=== PATIENT | male | born 1995 | race African-American/Black ===

== ENCOUNTER 2020-08-07 00:32 | Emergency (ER) | payer OTHER, SELFPAY ==
[2020-08-07 00:51] VITALS: BP 137/92; PULSE 68; RESP 16; TEMP 36.1; O2SAT 100
--- NOTE | 2020-08-07 00:54 | ED.GENADULT ---
HPI - General Adult General Chief complaint: Psychiatric Symptoms Stated complaint: si Time Seen by Provider: 08/07/20 00:51 History of Present Illness HPI narrative: Patient a 25-year-old gentleman who presents the emergency department with chief complaint of depression and suicidal ideation. The patient reports he has been feeling down lately and reports that he is having thoughts of hurting himself. The patient states he does not have a defined plan and states that it would vary depending on while he was having relatively access to. Patient reports he has been self-medicating with marijuana reports that he had no prior hospitalizations reports he has had no prior suicide attempt. Related Data Allergies Allergy/AdvReac Type Severity Reaction Status Date / Time No Known Allergies Allergy Verified 08/07/20 02:04 Review of Systems Review of Systems: Narrative: A 10 system review of systems was completed on the patient and is negative except for what is stated in the HPI. Nursing and ancillary documentation was reviewed. [facility] Social History Social History Gender identity (if verbalized by the patient): Male Exam Narrative: Exam Narrative: GENERAL: Well-appearing, well-nourished, and in no acute distress. HEAD: Normocephalic, atraumatic. EYES: PERRLA and EOMI. ENT: Nares clear, no rhinorrhea or epistaxis. Mucous membranes moist. NECK: Supple. CHEST: Clear to auscultation. No respiratory distress. HEART: Regular rate and rhythm. No murmur heard. Normal peripheral pulses. ABDOMEN: Soft, nontender, nondistended, normal active bowel sounds. EXTREMITIES: Normal range of motion. No edema. SKIN: Warm, dry, no rash. NEURO: No focal deficits. Alert and oriented x3. PSYCH: Normal mood and affect. Course Course Emergency Course: Patient is medically cleared for psychiatric evaluation Patient seen by crisis and cleared for outpatient follow-up Vital Signs Vital signs: Vital Signs Temperature 36.1 C L 08/07/20 00:51 Pulse Rate 68 08/07/20 00:51 Respiratory Rate 16 08/07/20 00:51 Blood Pressure 137/92 H 08/07/20 00:51 Pulse Oximetry 100 08/07/20 00:51 Temperature 36.1 C L 08/07/20 00:51 Pulse Rate 68 08/07/20 00:51 Respiratory Rate 16 08/07/20 00:51 Blood Pressure 137/92 H 08/07/20 00:51 Pulse Oximetry 100 08/07/20 00:51 Medical Decision Making Vital Signs Vital Signs: Vital Signs Temperature 36.1 C L 08/07/20 00:51 Pulse Rate 68 08/07/20 00:51 Respiratory Rate 16 08/07/20 00:51 Blood Pressure 137/92 H 08/07/20 00:51 Pulse Oximetry 100 08/07/20 00:51 Temperature 36.1 C L 08/07/20 00:51 Pulse Rate 68 08/07/20 00:51 Respiratory Rate 16 08/07/20 00:51 Blood Pressure 137/92 H 08/07/20 00:51 Pulse Oximetry 100 08/07/20 00:51 Lab Data Result diagrams: 08/07/20 01:04 08/07/20 01:04 Labs: Lab Results 08/07/20 08/07/20 08/07/20 Range/Units 01:04 01:04 01:04 WBC 5.2 (4.5-10.0) K/mm3 RBC 5.01 (4.6-6.20) M/mm3 Hgb 14.2 (14.0-18.0) g/dL Hct 41.6 L (42.0-52.0) % MCV 83.0 (80-100) fl MCH 28.3 (26-34) pg MCHC 34.1 (32-36) g/dl RDW 12.2 (11.5-14.5) % Plt Count 208 (150-375) k/mm3 MPV 10.5 H (7.4-10.4) fl Immature Gran % (Auto) 0.2 (0-0.5) % Neut % (Auto) 45.2 L (45.5-73.1) % Lymph % (Auto) 34.4 (18.3-44.2) % [place] % (Auto) 10.1 H (2.6-8.5) % Eos % (Auto) 8.9 H (0-4.4) % Baso % (Auto) 1.2 (0.2-1.2) % Lymph # (Auto) 1.77 (0.9-3.2) K/mm3 [place] # (Auto) 0.5 (0.1-0.6) K/mm3 Eos # (Auto) 0.5 H (0-0.3) K/mm3 Baso # (Auto) 0.1 (0.0-0.1) K/mm3 Abs Immat Gran (auto) 0.01 (0.00-0.031) K/mm3 Absolute Neuts (auto) 2.3 (1.3-6.7) K/mm3 Absolute Nucleated RBC 0.0 (0.0-0.012) K/mm3 Nucleated RBC % 0.0 (0.0-0.2) % Sodium 138 (137-145) mmol/L Potass
[2020-08-07 01:31] LABS: Basophils Absolute Auto 0.1 K/mm3 (0.0-0.1); Basophils Percent Auto 1.2 % (0.2-1.2); Eosinophils Absolute Auto 0.5 K/mm3 (0-0.3); Eosinophils Percent Auto 8.9 % (0-4.4); Hematocrit 41.6 % (42.0-52.0); Hemoglobin 14.2 g/dL (14.0-18.0); Immature Granulocyte Absolute 0.01 K/mm3 (0.00-0.031); Immature Granulocyte Percent A 0.2 % (0-0.5); Lymphocytes Absolute Auto 1.77 K/mm3 (0.9-3.2); Lymphocytes Percent Auto 34.4 % (18.3-44.2); Mean Corpuscular HGB Conc 34.1 g/dl (32-36); Mean Corpuscular Hemoglobin 28.3 pg (26-34); Mean Platelet Volume 10.5 fl (7.4-10.4); Monocytes Absolute Auto 0.5 K/mm3 (0.1-0.6); Monocytes Percent Auto 10.1 % (2.6-8.5); Neutrophils Absolute Auto 2.3 K/mm3 (1.3-6.7); Neutrophils Percent Auto 45.2 % (45.5-73.1); Platelet Count Result 208 k/mm3 (150-375); Red Blood Count 5.01 M/mm3 (4.6-6.20); Red Cell Distribution Width 12.2 % (11.5-14.5); White Blood Count 5.2 K/mm3 (4.5-10.0)
[2020-08-07 01:40] LABS: Ethanol < 10 mg/dL (<10)
[2020-08-07 01:41] LABS: Alanine Aminotransferase 25 U/L (4-50); Albumin Level 4.4 g/dL (3.5-5.1); Alkaline Phosphatase 66 U/L (38-126); Anion Gap 6 mmol/L (8-16); Aspartate Amino Transferase 33 U/L (17-59); Bilirubin,Total 0.3 mg/dL (0.2-1.3); Blood Urea Nitrogen 8 mg/dL (9-20); Calcium 9.3 mg/dL (8.4-10.2); Carbon Dioxide 26 mmol/L (22-30); Chloride 106 mmol/L (98-107); Estimated Glomerular Filt Rate > 60; Glucose 87 mg/dL (75-110); Potassium 4.2 mmol/L (3.4-5.0); Sodium 138 mmol/L (137-145)
[2020-08-07 01:43] LABS: Add Urine Microscopic? YES; Appearance Urine Cloudy (Clear); Bacteria Urine Trace /hpf; Bilirubin Urine Negative (Negative); Blood Urine Negative (Negative); Color Urine Yellow (Yellow); Glucose Urine UA Negative (Negative); Ketones Urine Negative (Negative); Leukocyte Esterase Ur Trace LEU/UL (Negative); Mucus Urine Rare /lpf; Nitrate Urine Negative (Negative); Protein Urine 1+ mg/dL (Negative); Specific Grav Ur 1.025 (1.001-1.035); Squamous Epithelial Cell Urine Occasional /hpf (Few); Urobilinogen Urine Negative mg/dL (<2.0); WBC Urine 16-20 /hpf
[2020-08-07 01:53] LABS: Amphetamine Screen Urine Negative (Negative); Barbiturate Screen Urine Negative (Negative); Benzodiazepines Screen Urine Negative (Negative); Cannabinoid Screen Urine Positive (Negative); Cocaine Screen Urine Negative (Negative); Methadone Screen Urine Negative (Negative); Opiate Screen Urine Negative (Negative); Phencyclidine Screen Urine Negative (Negative)
[2020-08-07] MEDS: cefTRIAXone 1 GM VIAL IM (02:25)
== END 2020-08-07 03:59 | disposition home or self-care (01) ==
PROVIDERS: Emergency Medicine; Emergency Provider Emergency Medicine
DX: F32.9 Major depressive disorder, single episode, unspecified (principal); N39.0 Urinary tract infection, site not specified
CPT/HCPCS: 36415; 80053; 80307; 81001; 84443; 85025; 87086; 96372; 99284; J0696